=== PATIENT | female | born 2000 | race Caucasian/White ===

== ENCOUNTER 2020-12-16 00:42 | Emergency (ER) | payer SELFPAY ==
[~2020-12-16] VITALS: Ht 175.3 cm; Wt 63.0 kg
[2020-12-16 01:35] VITALS: BP 121/77
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
== END 2020-12-16 02:35 | disposition left against medical advice (07) ==
LOC: ER 00:42
DX: M54.2 Cervicalgia (principal); M54.5 Low back pain; M25.511 Pain in right shoulder; G89.11 Acute pain due to trauma; V49.9XXA Car occupant (driver) (passenger) injured in unspecified traffic accident, initial encounter; Y93.89 Activity, other specified; Y92.488 Other paved roadways as the place of occurrence of the external cause; Y99.8 Other external cause status
CPT/HCPCS: 99281